=== PATIENT | female | born 1945 | race Caucasian/White ===

== ENCOUNTER 2021-06-14 16:04 | Emergency (ER) | payer OTHER ==
[~2021-06-14] VITALS: Ht 165.1 cm; Wt 81.6 kg
[2021-06-14 16:07] VITALS: BP 141/101
[2021-06-14 18:26] LABS: Basophils # (auto) 0 10 ^3/uL (0-0.2); Basophils % (auto) 0.4 % (0.0-2.0); Eosinophils # (auto) 0.5 10 ^3/uL (0-0.8); Eosinophils % (auto) 5.8 % (0.0-7.0); Hematocrit 39.1 % (36.0-46.0); Hemoglobin 13.4 g/dL (12.2-16.2); Lymphocytes # (auto) 2.1 10 ^3/uL (0.4-5.4); Lymphocytes % (auto) 27.1 % (10.0-50.0); Mean Corpuscular Hemoglobin 31.1 pg (28.0-32.0); Mean Corpuscular Hgb Conc. 34.3 g/dL (32.0-36.0); Mean Corpuscular Volume 90.7 fL (80.0-100.0); Monocytes # (auto) 0.8 10 ^3/uL (0-1.3); Monocytes % (auto) 9.7 % (0.0-12.0); Neutrophils # (auto) 4.5 10 ^3/uL (1.6-8.6); Nucleated Red Blood Cells % 0.2 %; Red Blood Cells 4.31 10^6/uL (4.0-5.20); Red Cell Distribution Width 13.6 % (11.8-14.3); White Blood Cell 7.9 10^3/uL (4.4-10.8)
[2021-06-14 18:41] LABS: Potassium 3.7 mmol/L (3.5-5.1)
[2021-06-14 18:47] LABS: Albumin 4.2 g/dL (3.4-5.0); BUN/Creatinine Ratio 13.5; Calcium 9.6 mg/dL (8.5-10.1)
[2021-06-14 18:49] LABS: Bilirubin, Total 0.4 mg/dL (0.2-1.0)
[2021-06-14] MEDS ORDERED: ASPirin 325 MG TAB PO ONE (19:30)
[2021-06-14] MEDS ORDERED: LABETALOL HCL 5 MG/ML 4ML SYRINGE IV ONE (21:30)
== END 2021-06-14 21:55 | disposition left against medical advice (07) ==
LOC: ER 16:04
DX: I16.0 Hypertensive urgency (principal); G45.9 Transient cerebral ischemic attack, unspecified
CPT/HCPCS: 36415; 70450; 80053; 84484; 85025; 93005

== ENCOUNTER 2021-06-24 22:33 | Inpatient (IN) | payer OTHER, MEDICAID ==
[~2021-06-24] VITALS: Ht 170.2 cm; Wt 72.9 kg
[2021-06-25 03:54] LABS: Basophils # (auto) 0.1 10 ^3/uL (0-0.2); Basophils % (auto) 1.2 % (0.0-2.0); Eosinophils # (auto) 0.3 10 ^3/uL (0-0.8); Eosinophils % (auto) 2.7 % (0.0-7.0); Hematocrit 37.5 % (36.0-46.0); Hemoglobin 12.7 g/dL (12.2-16.2); Lymphocytes # (auto) 2.5 10 ^3/uL (0.4-5.4); Lymphocytes % (auto) 21.9 % (10.0-50.0); Mean Corpuscular Hemoglobin 31.2 pg (28.0-32.0); Mean Corpuscular Hgb Conc. 33.8 g/dL (32.0-36.0); Mean Corpuscular Volume 92.4 fL (80.0-100.0); Monocytes # (auto) 0.9 10 ^3/uL (0-1.3); Monocytes % (auto) 7.8 % (0.0-12.0); Neutrophils # (auto) 7.6 10 ^3/uL (1.6-8.6); Neutrophils % (auto) 66.4 % (37.0-80.0); Red Blood Cells 4.05 10^6/uL (4.0-5.20); Red Cell Distribution Width 13.7 % (11.8-14.3); White Blood Cell 11.4 10^3/uL (4.4-10.8)
[2021-06-25 04:33] LABS: Alanine Aminotransferase 21 U/L (13-56); Albumin 3.8 g/dL (3.4-5.0); Anion Gap 9 (5-15); Aspartate Aminotransferase 15 U/L (15-37); BUN/Creatinine Ratio 10.3; Blood Urea Nitrogen 9 mg/dL (7-18); Carbon Dioxide 28 mmol/L (21-32); Chloride 104 mmol/L (98-107); GFR African American 82 mL/min; GFR Non-African American 68 mL/min; Glucose 117 mg/dL (74-106); Sodium 141 mmol/L (136-145)
[2021-06-25 04:36] LABS: Alkaline Phosphatase 114 U/L (45-117); Bilirubin, Total 0.3 mg/dL (0.2-1.0)
[2021-06-25] MEDS ORDERED: ATORVASTATIN 20 MG TAB PO ONE (05:15)
[2021-06-25] MEDS ORDERED: ASPirin 81 mg TAB PO ONE (05:15)
[2021-06-25] MEDS ORDERED: ONDANSETRON HCL 4 MG/2 ML VIAL IV PRN (05:15)
[2021-06-25] MEDS ORDERED: hydrALAZINE HCL 20 MG/ML VL IV PRN (05:30)
[2021-06-25] MEDS: SODIUM CHLOR 0.9% PF (SALINE LOCK) 10ML VIAL/SYR IV SCH ×3 (06:49→22:17)
[2021-06-25 09:00] VITALS: BP 134/66
[2021-06-25] MEDS ORDERED: cefTRIAXone 1GM/50ML D5W 50 ML IV ONE (10:45)
[2021-06-25 13:00] VITALS: BP 149/84
[2021-06-25 17:00] VITALS: BP 129/74
[2021-06-25 22:00] VITALS: BP 131/75
[2021-06-25] MEDS: ATORVASTATIN 20 MG TAB PO SCH (22:17)
[2021-06-26 05:00] VITALS: BP 128/81
[2021-06-26] MEDS: SODIUM CHLOR 0.9% PF (SALINE LOCK) 10ML VIAL/SYR IV SCH ×3 (05:38→22:24)
[2021-06-26] MEDS: cefTRIAXone 1GM/50ML D5W 50 ML IV SCH (08:52)
[2021-06-26] MEDS: ASPirin-EC 81 mg tab PO SCH (08:52)
[2021-06-26] MEDS: amLODIPine BESYLATE 5 MG TAB PO SCH (08:53)
[2021-06-26 09:29] LABS: Urine Bacteria NONE SEEN /hpf (None Seen); Urine Blood Negative /uL (Negative); Urine Hyaline Cast FEW /lpf (0 - 2); Urine Mucus FEW (None Seen); Urine Specific Gravity 1.019 (1.001-1.035); Urine WBC 20 /hpf (0 - 5)
[2021-06-26 11:12] LABS: Alcohol, Urine < 3.0 mg/dL (0-10); Amphetamine Screen, Urine NEGATIVE (NEGATIVE); Barbiturate Scree,Urine NEGATIVE (NEGATIVE); Benzodiazephine Screen, Urine NEGATIVE (NEGATIVE); Cannabinoid Screen, Urine NEGATIVE (NEGATIVE); Cocaine Screen, Urine NEGATIVE (NEGATIVE); Opiate Scree,Urine NEGATIVE (NEGATIVE); Phencyclidine Screen, Urine NEGATIVE (NEGATIVE)
[2021-06-26 13:00] VITALS: BP 112/68
[2021-06-26 13:04] LABS: Cholesterol 190 mg/dL (< 200); Triglycerides 282 mg/dL (< 150)
[2021-06-26 13:07] LABS: HDL Cholesterol 45 mg/dL (40-59); LDL Cholesterol 105 mg/dL (< 100)
[2021-06-26 17:00] VITALS: BP 125/68
[2021-06-26 21:47] VITALS: BP 117/74
[2021-06-26] MEDS: ATORVASTATIN 20 MG TAB PO SCH (22:24)
[2021-06-27 05:00] VITALS: BP 139/76
[2021-06-27] MEDS: SODIUM CHLOR 0.9% PF (SALINE LOCK) 10ML VIAL/SYR IV SCH ×3 (05:08→21:59)
[2021-06-27 09:00] VITALS: BP 144/78
[2021-06-27] MEDS: ASPirin-EC 81 mg tab PO SCH (09:30)
[2021-06-27] MEDS: cefTRIAXone 1GM/50ML D5W 50 ML IV SCH (09:30)
[2021-06-27] MEDS: amLODIPine BESYLATE 5 MG TAB PO SCH (09:31)
[2021-06-27 13:00] VITALS: BP 145/76
[2021-06-27 17:00] VITALS: BP 113/75
[2021-06-27] MEDS: ATORVASTATIN 20 MG TAB PO SCH (21:58)
[2021-06-27 22:00] VITALS: BP 127/76
[2021-06-28 05:00] VITALS: BP 131/73
[2021-06-28] MEDS: SODIUM CHLOR 0.9% PF (SALINE LOCK) 10ML VIAL/SYR IV SCH ×2 (06:00→14:22)
[2021-06-28 08:00] VITALS: BP 128/77
[2021-06-28] MEDS: cefTRIAXone 1GM/50ML D5W 50 ML IV SCH (10:10)
[2021-06-28] MEDS: ASPirin-EC 81 mg tab PO SCH (10:13)
[2021-06-28] MEDS: amLODIPine BESYLATE 5 MG TAB PO SCH (10:13)
[2021-06-28 12:00] VITALS: BP 117/76
[2021-06-28] MEDS ORDERED: AML5T PO (14:43)
[2021-06-28] MEDS ORDERED: ATOR40TA52 PO (14:43)
[2021-06-28] MEDS ORDERED: ASPI-543 PO (14:43)
[2021-06-28 16:00] VITALS: BP 140/64
[2021-06-28 18:48] VITALS: BP 140/64
== END 2021-06-28 19:15 | disposition home or self-care (01) | DRG 65 ==
LOC: ER 22:33 → TELE 06-25 05:08 → TELE-WESTW 06-25 06:13
PROVIDERS: ADMIT Internal Medicine; ATTEND Internal Medicine
DX: I63.9 Cerebral infarction, unspecified (principal); G81.91 Hemiplegia, unspecified affecting right dominant side; F17.200 Nicotine dependence, unspecified, uncomplicated; I10 Essential (primary) hypertension; I16.0 Hypertensive urgency; R29.706 NIHSS score 6; R47.81 Slurred speech; Z20.822 Contact with and (suspected) exposure to COVID-19; Z79.82 Long term (current) use of aspirin; Z79.899 Other long term (current) drug therapy
CPT/HCPCS: 36415; 70450; 70551; 71045; 72125; 80053; 80061; 80307; 81001; 83036; 84484; 87040; 87086; 93005; 93306; 93886; 97116; 97163; 97530; G0378; J0696